=== PATIENT | male | born 1985 | race Caucasian/White ===

== ENCOUNTER 2023-12-05 12:56 | Emergency (ER) | payer BC ==
[~2023-12-05] VITALS: Ht 180.3 cm; Wt 73.5 kg
[2023-12-05] MEDS ORDERED: BUPRENORPHINE HY8 MG SL (13:08)
[2023-12-05] MEDS ORDERED: AMOX-CLAV 875-1 EACH PO (13:09)
[2023-12-05] MEDS ORDERED: MELOXICAM15 MG PO (13:09)
[2023-12-05] MEDS ORDERED: ARIPIPRAZOLE20 MG PO (13:09)
== END 2023-12-05 13:14 | disposition home or self-care (01) ==
LOC: ED 12:56
DX: K02.9 Dental caries, unspecified (principal); K04.7 Periapical abscess without sinus; F31.9 Bipolar disorder, unspecified; F11.20 Opioid dependence, uncomplicated; F90.9 Attention-deficit hyperactivity disorder, unspecified type; F17.290 Nicotine dependence, other tobacco product, uncomplicated; Z88.6 Allergy status to analgesic agent